=== PATIENT | female | born 1980 | race Native Hawaiian/Other Pacific Islander ===

== ENCOUNTER 2018-10-04 11:35 | Emergency (ER) | payer OTHER ==
[2018-10-04 11:40] VITALS: BMI 27.6
[2018-10-04] MEDS ORDERED: Betamethasone Soluspan 30 mg/5mL Inj Susp IM ONE (12:03)
--- NOTE | 2018-10-04 12:32 | OBHP ---
Datetime: 10/04/2018 12:20 IP Adm Impression: , intrauterine ; No Active Labor IP Admit Plan: Observation/Evaluation; Discharge home Admit Comment, IP Provider: She is a 37-year-old 1 para 0 estimated due date 12/03/2018 christos mated gestational age 31 weeks patient went for routine ultrasound today and was noted to have a cerv ical length of 2.5 cm. PMD notified MFM referred patient to labor and delivery for observation and po ssible steroid administration. Patient denies any vaginal bleeding any leakage of fluid she reports g ood movement. care significant for ICSI and IVF. Past medical history none Past surgical history none Social history denies alcohol tobacco use Patient suffers from seasonal allergies currently taking injections Patient allergic to ibuprofen Review of systems patient denies headache chest pain shortness breath palpitations uterine cramps abdominal pain with vaginal bleeding dysuria heat or cold intolerance easy bruisability musculoskelet al complaints Vital signs stable afebrile Physical exam see notes Intrauterine at 30+ weeks gestation External monitor Observation Steroids Discharge home patient to follow up with PMD Dr. Laguna one week Pelvic Type - PN: Not Done Extremities - PN: Normal Abdomen - PN: Normal Back - PN: Not Done Breast - PN: Not Done Lungs - PN: Not Done Heart - PN: Not Done Thyroid - PN: Normal Neurologic - PN: Normal HEENT - PN: Normal General - PN: Normal Vital Signs Provider: Reviewed IP Chief Complaint: Other Genitourinary Exam: Not Done DTRs - PN: Normal
== END 2018-10-04 12:40 | disposition home or self-care (01) ==
LOC: H.EROB2 11:35
DX: O26.873 Cervical shortening, third trimester (principal); Z23 Encounter for immunization; Z3A.30 30 weeks gestation of pregnancy
CPT/HCPCS: 96372; 99281; J0702

== ENCOUNTER 2018-10-05 12:50 | Emergency (ER) | payer OTHER ==
[2018-10-04 11:40] VITALS: BMI 27.6
[2018-10-05] MEDS ORDERED: Betamethasone Soluspan 30 mg/5mL Inj Susp IM ONE (13:31)
[2018-10-05 19:26] VITALS: TEMP 98.7
== END 2018-10-05 14:45 | disposition home or self-care (01) ==
LOC: H.EROB2 12:50 → H.L&D 12:52 → H.EROB2 14:45
DX: O26.873 Cervical shortening, third trimester (principal); Z23 Encounter for immunization; Z3A.31 31 weeks gestation of pregnancy
CPT/HCPCS: 96372; 99281; J0702

== ENCOUNTER 2018-11-20 00:36 | Inpatient (IN) | payer OTHER ==
--- NOTE | 2018-11-20 00:44 | OBHP ---
Datetime: 10/05/2018 13:29 IP Adm Impression: , intrauterine ; Active labor IP Admit Plan: Observation/Evaluation; Discharge home Admit Comment, IP Provider: 37 y/o , 31.4 wks w/ NEHA of 12/03/2018 presents to [facility] for 2nd Beta methazone injection due to cervical length of 2.5 cm. Patient denies any vaginal bleeding any leakage of fluid she reports good movement. care significant for ICSI and IVF. Past medical history none Past surgical history none Social history denies alcohol tobacco use Patient suffers from seasonal allergies currently taking injections Patient allergic to ibuprofen Review of systems patient denies headache chest pain shortness breath palpitations uterine cramps abdominal pain with vaginal bleeding dysuria heat or cold intolerance easy bruisability musculoskelet al complaints Vital signs stable afebrile Physical exam see notes Intrauterine at 30+ weeks gestation 2nd Betamethazone 12 mg IM once External monitor Observation Steroids Labor precautions provided Discharge home patient to follow up with PMD Dr. Laguna one week Palomo Briones, PGY1 Pelvic Type - PN: Not Done Extremities - PN: Normal Abdomen - PN: Normal Back - PN: Not Done Breast - PN: Not Done Lungs - PN: Normal Heart - PN: Normal Thyroid - PN: Not Done Neurologic - PN: Normal HEENT - PN: Normal General - PN: Normal EGA AdmitDate IP: 31.4 Vital Signs Provider: Reviewed; Within Normal Limits IP Chief Complaint: Other Genitourinary Exam: Not Done DTRs - PN: Not Done
[2018-11-20 01:18] VITALS: BMI 30.8
[2018-11-20 02:10] LABS: BASO % 0.4 % (0.0-2.0); EOS # 0.2 K/uL (0.0-0.7); EOS % 2.1 % (0.0-4.0); HEMOGLOBIN 12.1 g/dL (12.0-16.0); LYMPH # 0.8 K/uL (1.0-4.3); LYMPH % 8.7 % (20.0-40.0); MEAN CELL VOLUME 91.4 fl (81.0-99.0); MEAN CORPUSCULAR HEMOGLOBIN 32.1 pg (27.0-31.0); MEAN CORPUSCULAR HGB CONC 35.1 g/dL (33.0-37.0); MONO # 0.9 K/uL (0.0-0.8); MONO % 10.2 % (0.0-10.0); NEUT # 7.3 K/uL (1.8-7.0); NEUT % 78.6 % (50.0-75.0); NRBC % 0.1 % (0.0-0.0); PLATELET COUNT 158 K/uL (130-400); RBC 3.78 Mil/uL (3.80-5.20); RED CELL DISTRIBUTION WIDTH 13.1 % (11.5-14.5); WHITE BLOOD COUNT 9.3 K/uL (4.8-10.8)
[2018-11-20] MEDS: Lactated Ringer's 1,000 ML IV SCH ×3 (02:11→18:00)
--- NOTE | 2018-11-20 02:14 | OBADHP ---
Datetime: 11/20/2018 01:54 Admit Comment, IP Provider: Patient is a 37 yo @ 38.1 wks, IVF ICSI with sperm donor, AMA, presenting with suspected ROM. Patient reports some vaginal bleeding mixed in with fluid, some cramps, +FM. Patient otherwise had no other antepartum risk factors, no previous surgery, no allergie s, takes only vitamins. VE=grossly ruptured, /-2 FHR = 125 mod herve, +accels, no decels TOCO = ctxning irregularly A/P 1. Admit patient to L_D, start IVF, CBC/type and screen 2. Will start Cytotec 50 mcg PO q 4 3. CEFM and TOCO 4. Re-evaluate as needed Pelvic Type - PN: Adequate Extremities - PN: Normal Abdomen - PN: Normal Back - PN: Normal Breast - PN: Normal Lungs - PN: Normal Heart - PN: Normal Thyroid - PN: Normal Neurologic - PN: Normal HEENT - PN: Normal General - PN: Normal FHR - Baseline A Provider: 125 Membranes, Provider: Ruptured Contraction Comments Provider: Irregular Vital Signs Provider: Reviewed; Within Normal Limits IP Chief Complaint: Suspected ruptured membranes NICHD Variability Prov Fetus A: Moderate 6-25bpm NICHD Accel Fetus A IP Provider: [id number] NICHD Decel Fetus A IP Provider: None Dilatation, Provider: 1 Effacement, Provider: 50 Station, Provider: -2 Genitourinary Exam: Normal DTRs - PN: Normal EGA AdmitDate IP: 38.1 IP Adm Impression: Term, intrauterine ; Ruptured Membranes IP Admit Plan: Admit to unit; Initiate labor augmentation protocol
[2018-11-20 02:54] LABS: BANDS 3 % (0-2); EOSINOPHIL 1 % (0-7); LYMPHOCYTE 8 % (20-50); MONOCYTE 10 % (0-10); NEUTROPHIL 78 % (42-75); PLATELET ESTIMATE NORMAL (NORMAL); TOTAL CELLS COUNTED 100
[2018-11-20] MEDS ORDERED: Nalbuphine HCL 10 mg/ml Ampule IVP PRN (07:45)
[2018-11-20] MEDS ORDERED: Nalbuphine HCL 10 mg/ml Ampule ONE (07:52)
--- NOTE | 2018-11-20 08:15 | OBPN ---
Datetime: 11/20/2018 08:08 IP Progress Impression: Normal progression of labor IP Procedures: Sterile Vag Exam IP Progress Plan: Induction Membranes, Provider: Ruptured FHR - Baseline A Provider: 120's IP Progress Note Comment: 37 yo G1 at 38+1 wks w/ PROM at 1205, s/p cytotec x 2 Pt is considering epidural FHT reassuring, GBS negative NICHD Accel Fetus A IP Provider: [id number] FHR Category Provider Fetus A: Category I NICHD Variability Prov Fetus A: Moderate 6-25bpm Dilatation, Provider: 3 Effacement, Provider: 90 Station, Provider: -1 NICHD Decel Fetus A IP Provider: None; Early Datetime: 11/20/2018 01:54 Contraction Comments Provider: Irregular Vital Signs Provider: Reviewed; Within Normal Limits
[2018-11-20] MEDS ORDERED: Bupivacaine HCl 0.5% PF (30 ml) Inj ONE (08:37)
[2018-11-20] MEDS ORDERED: Fentanyl/Bupivacaine HCl 250 ML EPI ONE (09:19)
[2018-11-20] MEDS ORDERED: Lactated Ringer's 1,000 ML IV SCH ×2 (09:30)
[2018-11-20] MEDS ORDERED: OXYTOCIN/0.9 % NS 20 UNIT/1,000 ML BAG IV ONE (11:18)
[2018-11-20] MEDS ORDERED: Oxytocin 30 UNIT 30 UNITS/500 ML BAG IV ONE ×3 (11:18→18:15)
[2018-11-20] MEDS ORDERED: ceFAZolin 2 GM in Sodium Chloride 0.9% 100 ML IVPB ONE (21:33)
[2018-11-20] MEDS ORDERED: Morphine 1 mg/ml preservative-free Inj(Duramorph) ONE (23:02)
[2018-11-20] MEDS ORDERED: Lidocaine 2% PF (10 ml) Amp ONE (23:02)
[2018-11-21] MEDS ORDERED: Ammonia 2% Inhalant ONE (01:30)
[2018-11-21] MEDS ORDERED: Cellulose Hemostat 2X3 Sheet ONE ×2 (01:30→01:38)
[2018-11-21] MEDS ORDERED: Oxycodone/Acetaminophen 5/325 mg Tab PO PRN ×2 (01:42→20:24)
[2018-11-21] MEDS ORDERED: DiphenhydrAMINE 50 mg/ml Inj IVP PRN ×2 (01:42→05:32)
--- NOTE | 2018-11-21 03:38 | OBDS ---
DELIVERY PERSONNEL Delivery Doctor: Cecil Sanchez MD Flag Decorator: Liu Jo RN Anesthesiologist: Reggie Esteban MD Resident: Dr. Rylee Vincent MATERNAL INFORMATION Delivery Anesthesia: Epidural Estimated Blood Loss (ml): 950 Placenta Cultured: No Maternal Complications: Prolonged Second Stage > 2 Hrs Provider Comments: Pre-op dx: 37 yo G1 at 38+2 wks w/ arrest of descent Post-op dx: Same Procedure: Primary low transverse section Surgeon: Laura Assistants: Drs. Maynor Henriquez, PGY-1 and Lesley Cole, PGY-1 Anesthesia: Epidural Anesthesiologist: Dr. Devyn Esteban Findings: Viable male delivered w/ vacuum-assistance through clear fluid at 0107. Apgars 9 and 9. Wt 3249 gms, 7#2.3. Nl appearing uterus, tubes and ovaries. EBL [id number] LABOR SUMMARY EDC: 12/03/2018 00:00 No. Babies in Womb: 1 Attempted: No Labor Anesthesia: Epidural LABOR INFORMATION Reason for Induction: Not Applicable Onset of Labor: 11/20/2018 09:52 Complete Dilatation: 11/20/2018 16:15 Cervical Ripening Agents: Cytotec @ (Annotations: Cytotec 50mcg PO tab given 2nd dose ) Oxytocin: Augmentation Group B Beta Strep: Negative Antibiotics # of Doses: 1 Antibiotics Time of Last Dose: 0040 MEMBRANES Membranes Rupture Method: Spontaneous Rupture of Membranes: 11/20/2018 00:05 Amniotic Fluid Color: Bloody Amniotic Fluid Amount: Large Amniotic Fluid Odor: Normal STAGES OF LABOR Stage 1 hrs: 6 Stage 1 min: 23 CSECTION DELIVERY Primary Indication: Arrest of Descent PRESENTATION/POSITION BABY A Presentation: Cephalic INFANT INFORMATION BABY A Gestational Age at Delivery: 38.0 Gestational Status: Term IDENTIFICATION/MEDS BABY A ID Band Number: [id number]
[2018-11-21] MEDS ORDERED: Lactated Ringer's 1,000 ML IV SCH (05:32)
[2018-11-21 06:26] LABS: HEMOGLOBIN 10.5 g/dL (12.0-16.0); MEAN CELL VOLUME 92.2 fl (81.0-99.0); MEAN CORPUSCULAR HEMOGLOBIN 31.7 pg (27.0-31.0); MEAN CORPUSCULAR HGB CONC 34.3 g/dL (33.0-37.0); RBC 3.3 Mil/uL (3.80-5.20); RED CELL DISTRIBUTION WIDTH 13.3 % (11.5-14.5); WHITE BLOOD COUNT 16.8 K/uL (4.8-10.8)
[2018-11-21] MEDS ORDERED: Benzocaine/Menthol SPRAY TOP PRN (08:07)
[2018-11-21] MEDS: Multivitamin With Minerals Tab PO SCH (08:48)
[2018-11-21] MEDS ORDERED: Multivitamin With Minerals Tab PO SCH (09:00)
[2018-11-21] MEDS: Oxycodone/Acetaminophen 5/325 mg Tab PO PRN (12:51)
--- NOTE | 2018-11-21 13:27 | OBPPN ---
Datetime: 11/21/2018 13:00 PP Pain Prov: Within normal limits PP Nausea Prov: Denies PP Flatus Prov: No PP BM Prov: No PP Breasts Prov: Normal PP Heart Prov: Normal PP Lungs Prov: Normal PP Abdomen/Uterus Prov: Normal PP Lochia Prov: Normal PP Vulva/Perineum Prov: Normal PP CVA Tenderness Prov: Normal PP Extremities Prov: Normal PP C/S Incision Prov: Normal PP Impression Prov: Normal progression PP Plan Prov: Continue present management PP Progress Note Prov: She feels fine. No dizziness Abd bandage dry vagoina - packing removed H/H 07/25 A; S/P C/S day 1 PLAN cont post op care Vital Signs Provider PP: Reviewed; Within Normal Limits
--- NOTE | 2018-11-21 14:26 | OP ---
PROCEDURE DATE: 11/21/2018 PREOPERATIVE DIAGNOSIS: This is a 37-year-old G1 at 38 weeks and 2 days with arrest of descent. POSTOPERATIVE DIAGNOSIS: This is a 37-year-old G1 at 38 weeks and 2 days with arrest of descent. PROCEDURE: Primary low transverse section. SURGEON: Parth Sanchez MD. MANAGER [employer]ERCIAL [employer]: Drs. Maynor Henriquez PGY and Lesley Cole PGY. TYPE OF ANESTHESIA: Epidural. ANESTHESIA ADMINISTERED BY: Dr. Devyn Esteban MD. FINDINGS: Viable male infant delivered with vacuum assistance through clear fluid at 1:07. Apgars were 9 and 9 at 1 and 5 minutes respectively. The weight was 3294 grams or 7 pounds 2.3 ounces. Normal appearing uterus, tubes, and ovaries. ESTIMATED BLOOD LOSS: 950 mL. DESCRIPTION OF PROCEDURE: The patient was taken to the operating room and her epidural had been bolused. The patient already had a Tavares in place. An attempt was made to gently push the baby's head higher up in the vagina. It was noted that she started to have vaginal bleeding and so a laparotomy sponge was packed into the vagina and left there for the duration of the case so as to tamponade the bleeding that had occurred from the vaginal exam. She was then prepped and draped in the normal sterile fashion in the dorsal supine position with a leftward tilt. A time-out had been done. A Pfannenstiel skin incision was then made with the scalpel and carried through to the underlying layer of fascia with the Bovie. The fascia was incised in the midline. The incision was extended laterally with a Bovie over a Yu. The inferior aspect of the fascial incision was then grasped with Madhavi clamps, elevated, and the underlying rectus muscles were dissected off bluntly and with the Bovie. Attention was then turned to the superior aspect of this incision which, in a similar fashion, was grasped, tented up with the Madhavi clamps, and the rectus muscles dissected off bluntly and with the Bovie. The rectus muscles were then in the midline and the peritoneum was identified, tented up and entered sharply with the Metzenbaum scissors. The peritoneal incision was then extended superiorly and inferiorly with good visualization of the bladder. It should be noted that there seemed to be a tight fit in the pelvis and so to make more room for the delivery of the baby, a Bovie was used to cut a few centimeters of the left rectus muscle. The bladder blade was then inserted and the vesicouterine peritoneum was identified, grasped with the pickups, and entered sharply with the Metzenbaum scissors. The incision was then extended laterally and the bladder flap was created digitally. The bladder blade was then reinserted and the lower uterine segment was incised in a transverse fashion with a scalpel. The uterine incision was then extended laterally digitally. The bladder blade was removed and the infant's head was delivered with a single pull with a vacuum. The cord was clamped and cut. The infant was handed off to the awaiting minor league baseball player. The cord blood was collected and [place] was also collected for the patient. The placenta was then delivered as the uterus was massaged. The uterus was then exteriorized and cleared of all clots and debris with a dry sponge curettage. There was a deep extension on the right side that was repaired with 0 Vicryl an a running locked stitch. The uterine incision was then repaired with 0 Vicryl in a running lock fashion. A second layer of the same suture was used in an imbricating fashion for hemostasis and to reinforce the incision. A few more 2-0 Vicryl stitches were placed on a smaller needle for some slight oozing in the area of the extension. The abdomen was then well irrigated. The uterus was returned to the abdomen. The gutters were cleared of all clots. The uterine incision was re-examined and found to be hemostatic and Surgicel was placed in the area of the incision as well as in the area of the extension for further hemostasis. The incision of left rectus muscle was repaired with 2 mattress stitches using 2-0 chromic. The rectus muscles were then reapproximated with a few interrupted stitches of 2-0 chromic. The fascia was then reapproximated with 0 Vicryl in a running fashion. The subcutaneous fat was irrigated. The space of the fat was closed with a running stitch of 2-0 plain gut. The skin was then closed with 4-0 Monocryl in a subcuticular fashion. The patient tolerated the procedure well. Sponge, lap and needle counts were correct. The patient received 2 g of Ancef prior to the procedure. At the end of the case, the laparotomy sponge that had been placed in the vagina was removed and the vagina was found to be hemostatic. It was decided to gently pack the vagina with vaginal packing for further hemostasis. The patient was then taken to the recovery room in stable condition. Parth Sanchez MD MTDD
[2018-11-22] MEDS: Multivitamin With Minerals Tab PO SCH (09:07)
[2018-11-22] MEDS: Oxycodone/Acetaminophen 5/325 mg Tab PO PRN (09:08)
--- NOTE | 2018-11-22 10:34 | OBPPN ---
Datetime: 11/22/2018 10:31 PP Pain Prov: Within normal limits PP Nausea Prov: Denies PP Flatus Prov: Yes PP Breasts Prov: Not Done PP Heart Prov: Not Done PP Lungs Prov: Not Done PP Abdomen/Uterus Prov: Normal PP Lochia Prov: Not Done PP Vulva/Perineum Prov: Not Done PP CVA Tenderness Prov: Normal PP Extremities Prov: Normal PP C/S Incision Prov: Normal PP Impression Prov: Normal progression PP Progress Note Prov: Doing well pain well controlled reports minimal lochia Vital signs stable afebrile Uterus firm below the umbilicus Incision clean dry intact Postop day #2 Encourage ambulation, regular diet, analgesia as needed Vital Signs Provider PP: Reviewed
[2018-11-23] MEDS: Multivitamin With Minerals Tab PO SCH (08:55)
--- NOTE | 2018-11-23 10:45 | OBPPN ---
Datetime: 11/23/2018 10:40 PP Pain Prov: Within normal limits PP Nausea Prov: Denies PP Flatus Prov: Yes PP BM Prov: Yes PP Breasts Prov: Normal PP Heart Prov: Normal PP Lungs Prov: Normal PP Abdomen/Uterus Prov: Normal PP Lochia Prov: Normal PP Vulva/Perineum Prov: Normal PP CVA Tenderness Prov: Normal PP Extremities Prov: Normal PP Comments Phys Exam Prov: Abdomen soft, nontender, nondistended Uterus firm, below umbilicus Incision clean, dry, intact No deep calf tenderness bilaterally PP Impression Prov: Normal progression PP Plan Prov: Continue present management PP Progress Note Prov: Postop day #2 status post , patient recovering well Pain control Patient out of bed and ambulating Regular diet Continue current management, anticipate discharge home tomorrow IP PP Procedures: None Vital Signs Provider PP: Reviewed; Within Normal Limits
[2018-11-24] MEDS: Multivitamin With Minerals Tab PO SCH (08:54)
--- NOTE | 2018-11-24 09:04 | OBPPN ---
Datetime: 11/24/2018 09:02 PP Pain Prov: Within normal limits PP Nausea Prov: Denies PP Flatus Prov: Yes PP BM Prov: Yes PP Breasts Prov: Normal PP Heart Prov: Normal PP Lungs Prov: Normal PP Abdomen/Uterus Prov: Normal PP Lochia Prov: Normal PP Vulva/Perineum Prov: Normal PP CVA Tenderness Prov: Normal PP Extremities Prov: Normal PP C/S Incision Prov: Normal PP Progress Prov: Normal PP Impression Prov: Normal progression PP Plan Prov: Discharge PP Progress Note Prov: SHe feels fine today. ready to go home. A: S/P C-Seciotn day 3 Discharge home Tylenol 325mg (2tab)_ po q 4h prn pain...Percoset 325mg/5mg po q4h prn pain 4-8 Follow up in 1-2w Vital Signs Provider PP: Reviewed; Within Normal Limits
--- NOTE | 2018-11-24 09:06 | OBDCSUM ---
Datetime: 11/24/2018 09:03 Discharged to, Provider: Home Follow up at, Provider: [facility] Disch Instr Activity: Normal activity Disch Instr Diet: Regular Discharge Instructions, Provider: Routine instructions given Discharge Diagnosis, Provider: Term Delivered Follow up in weeks, Provider: 1-2w Disch Referrals: None Contraception discussed, Prov: Yes Disch Activity Restrictions: No lifting; Minimize walking; Minimize stair-climbing; No sexual activi ty; Nothing in vagina - [place], tampons, douche
[2018-11-24 19:25] VITALS: BP 134/71; PULSE 108; RESP 20; TEMP 98; O2SAT 96
== END 2018-11-24 15:10 | disposition home or self-care (01) | DRG 788 ==
LOC: H.EROB2 00:36 → H.L&D 01:43 → H.OB/GYN 11-21 05:00
PROVIDERS: ADMIT Obstetrics & Gynecology; ATTEND Obstetrics & Gynecology
PROC: 3E033VJ Introduction of Other Hormone into Peripheral Vein, Percutaneous Approach (ICD-10-PCS; 2018-11-20)
PROC: 4A1HXCZ Monitoring of Products of Conception, Cardiac Rate, External Approach (ICD-10-PCS; 2018-11-20)
PROC: 10D00Z1 Extraction of Products of Conception, Low, Open Approach (ICD-10-PCS; principal; 2018-11-21)
DX: O62.1 Secondary uterine inertia (principal); O63.1 Prolonged second stage (of labor); Z3A.38 38 weeks gestation of pregnancy; Z37.0 Single live birth; O09.523 Supervision of elderly multigravida, third trimester; Z88.6 Allergy status to analgesic agent